=== PATIENT | female | born 1960 | race Caucasian/White ===

== ENCOUNTER → 2017-10-04 12:56 | Outpatient (CLI) | payer OTHER, SELFPAY ==
--- NOTE | 2017-10-04 13:07 | US_ITS ---
ULTRASOUND THYROID PROCEDURE: Multiple sagittal & transverse ultrasound images of the thyroid. BH due to HISTORY: Follow-up thyroid nodule COMPARISON: Previous thyroid ultrasound 04/16/2017 ----- FINDINGS: Increased lower right & left lobe RIGHT LOBE: 4.4 cm length x 2.6 cm wide x 1.6 cm. AP Nodule at this inhomogeneous right lobe. Nodule A: Prominent Solid nodule again seen at upper right lobe and appears slightly towards isthmus.. The different technologists today used different points for measurement. This nodule measures at nearly 20 mm transverse x 18 mm length x 12.7 mm AP thickness . although difficult to delineate the margins on some of these images it appears overall similar to March 2017. . Also images from September 2016 that have similar appearance Still suggest Consider ultrasound-guided biopsy of this of this dominant nodule area, if this has not been previously performed. Nodule B: Nodule at posterior aspect Lower pole right lobe, measuring up to 13 mm x 10 mm Similar to previous study as well.(Although labeled A on image, after discussion with technologist I have re labeled as nodule B) LEFT LOBE: 3.9 cm length x 2.2 cm wide as 1.3 cm AP Nodule A solid nodule midportion left lobe measures 8.8 mm maximally on today's study.: No progression since previous study . ISTHMUS: Normal thickness at midline A nodule at the right lobe extends to involve the right superior aspect of the isthmus. -----IMPRESSION--- 1. Multi Nodular thyroid. Again seen 2. Nodularity most contrast at mildly enlarged right lobe Dominant nodule right lobe measuring approximately 2 cm is again evident. Difficult to delineate but seems to be grossly stable with no obvious progression, however you may want to to consider biopsy of this dominant nodule on right. Or follow-up in 6-8 months 3. Other areas areas with stable since previous study
== END ==
PROVIDERS: PCP Family Medicine; Visit Provider Otolaryngology
DX: E06.9 Thyroiditis, unspecified (principal); E04.9 Nontoxic goiter, unspecified
CPT/HCPCS: 76536

== ENCOUNTER → 2017-10-05 10:36 | Outpatient (CLI) | payer OTHER, SELFPAY ==
[2017-10-05 12:52] LABS: Free T4 (Free Thyroxine) 1.09 ng/dl (0.76-1.46); Thyroid Stimulating Hormone 7.34 uIU/ml (0.358-3.740)
[2017-10-07 06:21] LABS: Thyroglobulin Level <1.0 IU/mL (0.0-0.9); Thyroid Peroxidase Antibodies 223 IU/mL (0-34)
== END ==
PROVIDERS: Visit Provider Otolaryngology
DX: E06.9 Thyroiditis, unspecified (principal); E04.9 Nontoxic goiter, unspecified
CPT/HCPCS: 36415; 84439; 84443; 86376; 86800

== ENCOUNTER → 2017-10-21 09:11 | Outpatient (CLI) | payer OTHER, SELFPAY ==
--- NOTE | 2017-10-21 09:17 | US_ITS ---
US biopsy (core) HISTORY: Suspicious thyroid nodule ITS.REASON: THYROID NODULE ORDERING PHYSICIAN: Gordon Carrasco MD PATIENT AGE: 57 years COMPARISON: None TECHNIQUE: Following obtaining informed consent, using aseptic technique and local anesthesia with buffered lidocaine, fine-needle aspiration was performed of the nodule of interest in the right lobe of the thyroid gland using sonographic guidance. 3 passes were made into the nodule with a 25-gauge needle. Specimen was given to cytology. The patient tolerated the procedure well without evidence of immediate complications and left the ultrasound suite in stable condition. CYTOLOGY:Negative for malignant cells IMPRESSION: Successful sonographic guided FNA of the thyroid nodule in the right negative for malignant cells without evidence of complication
== END ==
PROVIDERS: PCP Family Medicine; Visit Provider Otolaryngology
DX: E04.1 Nontoxic single thyroid nodule (principal); E03.9 Hypothyroidism, unspecified
CPT/HCPCS: 10022; 76536; 76942

== ENCOUNTER → 2018-02-02 13:45 | Outpatient (CLI) | payer OTHER, SELFPAY ==
--- NOTE | 2018-02-02 14:01 | US_ITS ---
US thyroid HISTORY: ITS.REASON: Thyroid Nodule ORDERING PHYSICIAN: Gordon Carrasco MD PATIENT AGE: 57 years Comparison: 10/04/2017 FINDINGS: The right lobe measures 4.6 x 2.1 x 2 cm. 1.5 x 1.2 cm solid-appearing slightly hyperechoic nodule upper pole unchanged 1.5 x 0.97 m hypoechoic nodule lower pole not significantly changed. The nodule is better demonstrated on today's images. The left lobe is 3.9 x 1.4 x 1.7 cm. Isoechoic 1.2 cm nodule upper pole unchanged. No new nodules are evident. The isthmus is not enlarged. IMPRESSION: Stable bilateral thyroid nodules as described above
[2018-02-02 15:41] LABS: Free T4 (Free Thyroxine) 1.43 ng/dl (0.76-1.46); Thyroid Stimulating Hormone 0.43 uIU/ml (0.358-3.740)
== END ==
PROVIDERS: PCP Family Medicine; Visit Provider Otolaryngology
DX: E03.9 Hypothyroidism, unspecified (principal); E04.1 Nontoxic single thyroid nodule
CPT/HCPCS: 36415; 76536; 84439; 84443

== ENCOUNTER → 2018-05-27 13:53 | Outpatient (CLI) | payer OTHER, SELFPAY ==
--- NOTE | 2018-05-27 13:56 | US_ITS ---
ULTRASOUND THYROID PROCEDURE: Multiple sagittal & transverse ultrasound images of the thyroid. HISTORY: Thyroid nodule follow-up COMPARISON: January 2018 also September 2017 ----- FINDINGS: . mildly heterogeneous gland with bilateral nodules again seen.. Right lobe enlarged more so than left. Decreased color Doppler survey flow.. No discrete new nodules identified RIGHT LOBE:Nodule A: 1.45 cm x 1 cm. Very slight diffuse hyperechoic Solid nodule upper pole Similar to previous January study Nodule B: Hypoechoic solid-appearing nodule Up to 1.9 cm length today x 0.85 cm AP x 1.3 cm transverse.. This nodule towards Towards inferior right lobe, measures slightly longer but the ill-defined appearance at the inferior pole makes it difficult to confirm any change. Particularly since it appears stable on the transverse and AP measurement and views.. LEFT LOBE: Nodule A: Solid diffuse mildly hyperechoic nodule appears similar size 1.2 cm transverse 0.81 cm AP. It can be followed . ISTHMUS: Measures under 3 mm AP. IMPRESSION Right lobe enlarged. Left lobe upper normal size. Bilateral thyroid nodules detailed above overall appear similar to previous study Nodule labeled B towards lower Right Lobe measures slightly longer, now up to 1.9 cm length.. But the lower pole of this nodule is difficult to delineate & thus difficult to measure length consistently. Overall no definitive change but warrants ongoing follow-up
[2018-05-27 18:37] LABS: Free T4 (Free Thyroxine) 1.06 ng/dl (0.76-1.46); Thyroid Stimulating Hormone 3.24 uIU/ml (0.358-3.740)
[2018-05-29 21:45] LABS: Thyroid Peroxidase Antibodies 190 IU/mL (0-34)
[2018-05-30 14:24] LABS: Thyroid Stimulating Immunoglob <0.10 IU/L (0.00-0.55)
== END ==
PROVIDERS: PCP Family Medicine; Visit Provider Otolaryngology
DX: E03.9 Hypothyroidism, unspecified (principal); E04.9 Nontoxic goiter, unspecified
CPT/HCPCS: 36415; 76536; 84439; 84443; 84445; 86376

== ENCOUNTER → 2018-06-17 10:03 | Outpatient (CLI) | payer OTHER, SELFPAY ==
--- NOTE | 2018-06-17 10:09 | US_ITS ---
FNA w guidance Ordering Physician: Gordon Carrasco MD Patient Age: 57 years: Female HISTORY: .: THYROID NODULEls right lobe. More evident nodule now at lower pole right lobe. Nodule at the mid left lobe previously biopsied TECHNIQUE: Ultrasound left lobe along with subsequent FNA ultrasound-guided biopsy left lobe thyroid FINDINGS AND PROCEDURE: ULTRASOUND thyroid ; Hypoechoic nodule is identified lower pole left lobe and measures up to 1.8cm maximum length/ dimension on today's images. This is the nodule to be targeted today. The more echogenic nodule at the midportion left lobe was previously biopsied .These images also determined the best approach for access to perform aspiration biopsy of this nodule. Scanning by Dr. Frye ------ ULTRASOUND-GUIDED FNA BIOPSY of the solid nodule lower pole right lobe thyroid... Following sterile preparation as well as local skin, and cautious deeper placement of Xylocaine anesthetic . I would also the patient received Xanax 1 mg Prior to the procedure for comfort and mild sedation. Under ultrasound guidance the FNA biopsy needle, was advanced to the nodule and positioned. Nodule is well seen. It was fairly soft with needle entry.. Needle tip was observed passing into the nodule on each of multipleFNA biopsies passes. I utilized aggressive [id number] movement of the needle tip within the nodule,;. With vacuum placed on the system by technologist using a 10 cc syringe, IV tubing to the needle connected to the FNA biopsy needle..... 3 passes performed with 25-gauge needles . Minimal tissue was noted in the cytology container.] Surprised that the cytology reported an adequate tissue definitive diagnosis. As we were fairly aggressive with the 3 passes today FNA specimen material obtained and subsequently submitted to cytopathology. Patient tolerated procedure well. Note: the patient had a previous biopsy of the nodule at the midportion Right lobe 10/21/2017. This was found to be a benign follicular nodule. I------IMPRESSION: 1. FNA l biopsy of solid nodule at lower pole right lobe CYTOPATHOLOGY . Stated to be inadequate sampling/with nondiagnostic specimen, ... Less than 6 follicular groups were identified with with with rare macrophages on the specimen. (but would note no malignancy evident on cells obtained.) 2... Suggest ultrasound thyroid follow-up 4-5 months Follow up of this recent sampled nodule lower pole right, as well as the multiple bilateral thyroid nodules in this multinodular gland. Rebiopsy of might be reconsidered after this follow-up
== END ==
PROVIDERS: Visit Provider Otolaryngology
DX: E04.1 Nontoxic single thyroid nodule (principal)
CPT/HCPCS: 10005; 76536

== ENCOUNTER → 2018-10-18 10:25 | Outpatient (CLI) | payer OTHER, SELFPAY ==
--- NOTE | 2018-10-18 10:28 | US_ITS ---
US Biopsy Thyroid HISTORY: ITS.REASON: Goiter ORDERING PHYSICIAN: Gordon Carrasco MD PATIENT AGE: 58 years COMPARISON: 06/17/2018, 05/19/2018 TECHNIQUE: This was a repeat biopsy. The first biopsy was a nondiagnostic specimen. The pathologist was present for this procedure. Following obtaining informed consent, using aseptic technique and local anesthesia with buffered lidocaine, fine-needle aspiration was performed of the nodule of interest using sonographic guidance. 3 passes were made into the nodule with a 25-gauge needle. 2 passes were made with a 21-gauge needle. The specimen appeared to contain material in the CytoLyt solution. The needle was confirmed to be within the specimen on every pass. Despite this, the specimen was nondiagnostic. Core biopsy cannot be performed due to the location and deep nature of the lesion. The patient tolerated the procedure well without evidence of immediate complications and left the ultrasound suite in stable condition. CYTOLOGY:Despite multiple passes made and having the pathologist present, the specimen was still deemed nondiagnostic. IMPRESSION: Multiple passes made with pathologist present. Specimen is still nondiagnostic.
== END ==
PROVIDERS: PCP Family Medicine; Visit Provider Otolaryngology
DX: E03.9 Hypothyroidism, unspecified (principal); E04.1 Nontoxic single thyroid nodule
CPT/HCPCS: 10005; 76536; 76942

== ENCOUNTER 2018-12-17 18:55 | Outpatient (CLI) | payer OTHER, SELFPAY | END 2018-12-17 19:41 | disposition home or self-care (01) | LOC: UTC.OUT 18:58 | PROVIDERS: Visit Provider Nurse Practitioner Family | DX: Z90.09 Acquired absence of other part of head and neck (principal); E06.3 Autoimmune thyroiditis ==

== ENCOUNTER → 2019-01-16 15:09 | Outpatient (CLI) | payer OTHER, SELFPAY ==
[2019-01-16 16:02] LABS: Calcium 9.1 mg/dL (8.5-10.1); Free T4 (Free Thyroxine) 0.75 ng/dl (0.76-1.46)
[2019-01-16 16:07] LABS: Thyroid Stimulating Hormone 46.72 uIU/ml (0.358-3.740)
== END ==
PROVIDERS: Visit Provider Otolaryngology
DX: E06.3 Autoimmune thyroiditis (principal); Z90.09 Acquired absence of other part of head and neck
CPT/HCPCS: 36415; 82310; 84439; 84443

== ENCOUNTER → 2019-08-02 12:44 | Outpatient (CLI) | payer OTHER, SELFPAY ==
[2019-08-02 17:22] LABS: Free T4 (Free Thyroxine) 0.83 ng/dl (0.78-2.19)
== END ==
PROVIDERS: Visit Provider Otolaryngology
DX: E03.9 Hypothyroidism, unspecified (principal); E06.9 Thyroiditis, unspecified
CPT/HCPCS: 36415; 84439; 84443

== ENCOUNTER → 2019-12-18 14:38 | Outpatient (CLI) | payer OTHER, SELFPAY ==
[2019-12-18 16:28] LABS: Free T4 (Free Thyroxine) 0.66 ng/dl (0.78-2.19)
== END ==
PROVIDERS: Visit Provider Otolaryngology
DX: E03.9 Hypothyroidism, unspecified (principal)
CPT/HCPCS: 36415; 84439; 84443